=== PATIENT | female | born 1985 ===

== ENCOUNTER 2017-12-07 17:37 | Emergency (ER) | payer MEDICAID, OTHER ==
[2017-12-07 17:37] VITALS: BMI 26.4
[2017-12-07] MEDS ORDERED: Sodium Chloride 0.9% 1,000 ML IV STA (18:36)
--- NOTE | 2017-12-07 18:39 | ED PDOC ---
HPI: Female Pain Time Seen by Provider: 12/07/17 18:36 Chief Complaint (Nursing): Female Genitourinary Chief Complaint (Provider): VAGINAL BLEEDING History Per: Patient (32 Y/O FEMALE HERE WITH VAGINAL BLEEDING LEFT LOWER ABD PAIN X 9 DAYS. WAS SEEN AT [facility] AND WAS TOLD SHE HAD SPONTANEOUS . WAS NOTED TO HAVE BETA HCG 277. SEEN AT [facility] TODAY (STATES SHE WAS TOLD TO F/U 7 DAYS SUBSEQUENTLY TO REPEAT BETA HCG) AND WAS FOUND TO HAVE BETA QUANT >700. 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 AND THAT IT WOULD BE HARD FOR HER TO GET NATURALLY.) Past Medical History Reviewed: Historical Data, Nursing Documentation, Vital Signs Vital Signs: Last Vital Signs Temp 99.7 F H 12/07/17 17:48 Pulse 99 H 12/07/17 17:48 Resp 16 12/07/17 17:48 BP 119/78 12/07/17 17:48 Pulse Ox 99 12/07/17 17:48 - Medical History PMH: Asthma, Hypothyroidism Denies: Chronic Kidney Disease - Family History Family History: States: No Known Family Hx - Home Medications Home Medications: Ambulatory Orders Medication Instructions Recorded Levothyroxine [Synthroid] 1 tab PO DAILY 07/14/17 Acetaminophen [Tylenol Arthritis] 650 mg PO Q6 11/28/17 - Allergies Allergies/Adverse Reactions: Allergies Allergy/AdvReac Type Severity Reaction Status Date / Time aspirin Allergy SWELLING Verified 12/07/17 17:47 ibuprofen AdvReac SHORTNESS Verified 11/28/17 12:18 OF BREATH Review of Systems ROS Statement: Except As Marked, All Systems Reviewed And Found Negative Physical Exam - Reviewed Nursing Documentation Reviewed: Yes Vital Signs Reviewed: Yes - Physical Exam Appears: Positive for: Well, Non-toxic, No Acute Distress Head Exam: Positive for: ATRAUMATIC, NORMAL INSPECTION, NORMOCEPHALIC Skin: Positive for: Normal Color, Warm, DRY Eye Exam: Positive for: EOMI, Normal appearance, PERRL ENT: Positive for: Normal ENT Inspection Neck: Positive for: Normal, Painless ROM Cardiovascular/Chest: Positive for: Regular Rate, Rhythm Respiratory: Positive for: CNT, Normal Breath Sounds Gastrointestinal/Abdominal: Positive for: Normal Exam, Soft Pelvic Exam: Positive for: Other (MILD VAGINAL BLEEDING. CLOSED CERVICAL OS. LEFT ADNEXAL TENDERNESS NOTED.) Back: Positive for: Normal Inspection Extremity: Positive for: Normal ROM Neurologic/Psych: Positive for: Alert, Oriented - Laboratory Results Result Diagrams: 12/07/17 18:49 12/07/17 18:49 - ECG O2 Sat by Pulse Oximetry: 99 - Progress ED Course And Treament: TRANSVAG US REVIEWED WITH DR. GRACE. NO IUP NOTED ON TECH READING. WILL AWAIT [facility] READING. D/W FAMILY MED RESIDENT SERVICE WORKER HELPER FOR OB-POLITICAL ANTHROPOLOGIST. DR. TEE CURRENTLY IN OR. NS 1 LITER WIDE OPEN Disposition - Clinical Impression Clinical Impression: Vaginal bleeding - Patient ED Disposition Is Patient to be Admitted: Transfer of Care - Disposition Disposition: Transfer of Care Disposition Time: 19:54 Condition: FAIR Patient Signed Over To: Nancy Cuadra Handoff Comments: PENDING [facility] REPORT FOR US; GUEST HOUSE MANAGER CONSULT
[2017-12-07 19:00] LABS: BASO % 0.7 % (0.0-2.0); EOS % 0.7 % (0.0-4.0); HEMOGLOBIN 14.1 g/dL (12.0-16.0); LYMPH # 2.1 K/uL (1.0-4.3); LYMPH % 34.2 % (20.0-40.0); MEAN CELL VOLUME 94.6 fl (81.0-99.0); MEAN CORPUSCULAR HEMOGLOBIN 31.7 pg (27.0-31.0); MEAN CORPUSCULAR HGB CONC 33.5 g/dL (33.0-37.0); MEAN PLATELET VOLUME 9.4 fl (7.2-11.7); MONO # 0.3 K/uL (0.0-0.8); MONO % 4.8 % (0.0-10.0); NEUT # 3.6 K/uL (1.8-7.0); NEUT % 59.6 % (50.0-75.0); NRBC % 0.3 % (0.0-0.0); RBC 4.44 Mil/uL (3.80-5.20); RED CELL DISTRIBUTION WIDTH 14.1 % (11.5-14.5); WHITE BLOOD COUNT 6.1 K/uL (4.8-10.8)
[2017-12-07 19:03] LABS: INR 0.9; PROTHROMBIN TIME 10.3 Seconds (9.8-13.1)
[2017-12-07 19:05] LABS: PARTIAL THROMBOPLASTIN TIME 34.8 Seconds (25.6-37.1)
[2017-12-07 19:10] LABS: GFR NON-AFRICAN AMERICAN > 60
[2017-12-07 19:16] LABS: BLOOD UREA NITROGEN 15 mg/dl (7-17)
--- NOTE | 2017-12-07 20:06 | ED PDOC ---
- Laboratory Results Result Diagrams: 12/07/17 18:49 12/07/17 18:49 - ECG O2 Sat by Pulse Oximetry: 99 - Progress ED Course And Treament: Case endorsed to engineering technical writer from Darian BANERJEE pending Ged Preparation Teacher eval EXAM: US , Transvaginal CLINICAL HISTORY: 32 years old, female; Pain; complicated by abdominal or pelvic pain; Lower; First trimester; Gestational age or lmp: 10/08/2017; Additional info: R/O ectopic left adnexal tenderness TECHNIQUE: Real-time transvaginal obstetrical ultrasound of the maternal pelvis and a first trimester with image documentation. Transvaginal imaging was used for better evaluation of the fetus and adnexa. COMPARISON: No relevant prior studies available. FINDINGS: Gestation: Negative intrauterine gestational sac. The endometrium measures 6.6 mm Placenta/amniotic fluid: Cannot be adequately evaluated due to the early gestational age. Uterus/cervix: Unremarkable. No myometrial mass. Uterus 6.2 cm x 4.8 cm x 3.5 cm The cervix is 3.9 cm in length the cervical os is closed. Ovaries: Unremarkable. No mass. RIGHT 2.9 cm x 2.4 cm x 2.6 cm. The LEFT 2.9 cm x 2.9 cm x 3.2 cm. Free fluid: Trace free fluid is seen within the cul-de-sac. Examination does not show sonographic evidence of an ectopic . The absence of intrauterine gestational sac suggest differential diagnosis of early normal , ectopic , or recent spontaneous . IMPRESSION: 1. Negative intrauterine gestational sac. 2. Negative uterus and endometrium. 3. Negative exam of the ovaries. 4. Negative for evidence of ectopic . Patient evaluated by Dr. Medrano, want ad supervisor on-call; consent obtained for Methotrexate. Patient was advised to return to ED Sat 12/11, and tu12/14 for repeat beta levels Patient educated on discharge/return instructions via [employer] gold beater [id number] Patient demonstrates full understanding of discharge instructions as explained. Patient stable for discharge. Disposition - Clinical Impression Clinical Impression: Vaginal bleeding - POA Present On Arrival: None - Disposition [facility] [Outside] Disposition: Routine/Home Disposition Time: 23:24 Condition: STABLE Additional Instructions: Regresar a la josemanuel de emergencias los siguientes aparicio: sbado, 12/11/17 mariana, 12/14/17 Instructions: Methotrexate Print Language: SYRIAC
[2017-12-07 20:18] VITALS: TEMP 99.1
[2017-12-07] MEDS ORDERED: Methotrexate 50 mg/2 ml Inj IM ONE (22:01)
[2017-12-07 22:02] LABS: ALB/GLOB RATIO 1.2 (1.0-2.1); ALBUMIN 3.2 g/dL (3.5-5.0)
[2017-12-07 22:12] VITALS: O2SAT 99
--- NOTE | 2017-12-07 22:46 | CP.PCM.CON ---
<Brent Peacock - Last Filed: 12/07/17 23:44> History of Present Illness - History of Present Illness History of Present Illness: 32 y/o female with no significant PMHx seen in consult today with c/o occasional LLQ abdominal crampy pain and mild vaginal bleeding. Patient has hx of A1, irregular menses Q40 to 50 days lasts 5 to 6 days, LMP 10/08/17, she reports that she had vaginal bleeding with expulsion of tissue 9 days ago, she states she did a urine test at home at that time and was positive and went to [facility] on 11/28/17, where she was told she was having an , her BetaHCG was 277.82 on that visit. Patient states she was sent home and the bleeding started decreasing until 2 days ago when she started noticing some mild bleeding again where she has to change the pads 2 to 3 times a day, and she also reports she had some intermittent LLQ abd pain, 5/10, with no radiation. Patient went to [facility] again today and had another Beta HCG done with 674, patient was instructed to come to [facility] for evaluation by OBGYN, here her beta HCG results is 699.02. Patient denies any fever, N/V/D/C , headache, palpitations, chest pain, dysuria or abdominal pain at this time of consult. PMD: None PMHx: hypothyroidsm, asthma SurgHx: None Medication: Levothyroxine. FMHx: Father had ID Allergies: Aspirin, NSAIDS, Shrimp Social: Lives with , denies tobacco, alcohol or drug use. ED course: VS BP 119/78, HR 89, RR 16 Temp 99.7 Labs reviewed: H/H 14.142 betaHCG 699.02 Transvaginal US 12/07/17 reviewed ROS: as per HPI, all others unremarkable. Past Patient History - Infectious Disease Hx of Infectious Diseases: None - Past Social History Smoking Status: Never Smoked - CARDIAC Hx Cardiac Disorders: No - PULMONARY Hx Asthma: Yes - NEUROLOGICAL Hx Neurological Disorder: No - HEENT Hx HEENT Problems: No - RENAL Hx Chronic Kidney Disease: No - ENDOCRINE/METABOLIC Hx Hypothyroidism: Yes - PSYCHIATRIC Hx Substance Use: No - SURGICAL HISTORY Hx Surgeries: No - ANESTHESIA Hx Anesthesia: No Meds Allergies/Adverse Reactions: Allergies Allergy/AdvReac Type Severity Reaction Status Date / Time aspirin Allergy SWELLING Verified 12/07/17 17:47 ibuprofen AdvReac SHORTNESS Verified 11/28/17 12:18 OF BREATH Physical Exam - Constitutional Appears: Well, No Acute Distress - Head Exam Head Exam: ATRAUMATIC, NORMOCEPHALIC - Eye Exam Eye Exam: EOMI, PERRL - ENT Exam ENT Exam: Mucous Membranes Moist - Neck Exam Neck exam: Positive for: Full Rom - Respiratory Exam Respiratory Exam: Clear to Auscultation Bilateral - Cardiovascular Exam Cardiovascular Exam: REGULAR RHYTHM, +S1, +S2 - GI/Abdominal Exam GI & Abdominal Exam: Normal Bowel Sounds, Soft. absent: Tenderness - Exam Speculum exam: NORMAL SPECULUM EXAM (cervix closed ) - Extremities Exam Extremities exam: Negative for: pedal edema - Neurological Exam Neurological exam: Alert, Oriented x3 - Psychiatric Exam Psychiatric exam: Normal Affect, Normal Mood - Skin Skin Exam: Normal Color, Warm Results - Vital Signs Recent Vital Signs: Last Vital Signs Temp 99.1 F 12/07/17 20:18 Pulse 68 12/07/17 20:18 Resp 84 H 12/07/17 20:18 BP 107/71 12/07/17 20:18 Pulse Ox 99 12/07/17 22:11 - Labs Result Diagrams: 12/07/17 18:49 12/07/17 18:49 Labs: Laboratory Results - last 24 hr 12/07/17 12/07/17 12/07/17 18:49 18:49 18:49 WBC 6.1 RBC 4.44 Hgb 14.1 Hct 42.0 MCV 94.6 MCH 31.7 H MCHC 33.5 RDW 14.1 Plt Count 223 MPV 9.4 Neut % (Auto) 59.6 Lymph % (Auto) 34.2 [place] % (Auto) 4.8 Eos % (Auto) 0.7 Baso % (Auto) 0.7 Neut # (Auto) 3.6 Lymph # (Auto) 2.1 [place] # (Auto) 0.3 Eos # (Auto) 0.0 Baso # (Auto) 0.0 PT 10.3 INR 0.9 APTT 34.8 Sodium 140 Potassium 4.1 Chloride 104 Carbon Dioxide 21 L Anion Gap 19 BUN 15 Creatinine 0.6 L Est GFR ( Amer) > 60 Est GFR (Non-Af Amer) > 60 Random Glucose 89 Calcium 9.0 Total Bilirubin Direct Bilirubin AST ALT Alkaline Phosphatase Total Protein Albumin Globulin Albumin/Globulin Ratio Beta HCG, Quant Blood Type Antibody Screen BBK History Checked 12/07/17 12/07/17 12/07/17 18:49 18:49 21:46 WBC RBC Hgb Hct MCV MCH MCHC RDW Plt Count MPV Neut % (Auto) Lymph % (Auto) [place] % (Auto) Eos % (Auto) Baso % (Auto) Neut # (Auto) Lymph # (Auto) [place] # (Auto) Eos # (Auto) Baso # (Auto) PT INR APTT Sodium Potassium Chloride Carbon Dioxide Anion Gap BUN Creatinine Est GFR ( Amer) Est GFR (Non-Af Amer) Random Glucose Calcium Total Bilirubin 0.3 Direct Bilirubin 0.0 AST 24 ALT 30 Alkaline Phosphatase 36 L Total Protein 5.8 L Albumin 3.2 L Globulin 2.7 Albumin/Globulin Ratio 1.2 Beta HCG, Quant 699.02 Blood Type A POSITIVE Antibody Screen Negative BBK History Checked Patient has bt Assessment & Plan - Assessment and Plan (Free Text) Assessment: 32 y/o female with hx of vaginal expulsion of tissue on 11/28/17. Now presents with increasing levels of Beta HCG today 699.02 and c/o intermittent mild LLQ abd pain. Impression diagnosis: Ectopic Plan: -Methotrexate 82 mg IM x1 dose ( ECtopic x 1) -F/u measure Beta HCG day 4 and day 7 -Measure LFT's prior to treatment and f/u in 4 days -Patient aknowledges understadning of condition, instructed to return in 4 days for f/u after receiving treatment with methotrexate today, instructions given to return to ED if symptoms persist or worsen. Case discussed and seen with attending Dr Kevin Medrano. <Kevin Medrano - Last Filed: 12/08/17 16:01> Results - Vital Signs Recent Vital Signs: Last Vital Signs Temp 99.1 F 12/07/17 23:44 Pulse 69 12/07/17 23:44 Resp 18 12/07/17 23:44 BP 102/69 12/07/17 23:44 Pulse Ox 99 12/07/17 23:33 - Labs Result Diagrams: 12/07/17 18:49 08/07/18 18:49 Labs: Laboratory Results - last 24 hr 12/07/17 12/07/17 12/07/17 18:49 18:49 18:49 WBC 6.1 RBC 4.44 Hgb 14.1 Hct 42.0 MCV 94.6 MCH 31.7 H MCHC 33.5 RDW 14.1 Plt Count 223 MPV 9.4 Neut % (Auto) 59.6 Lymph % (Auto) 34.2 [place] % (Auto) 4.8 Eos % (Auto) 0.7 Baso % (Auto) 0.7 Neut # (Auto) 3.6 Lymph # (Auto) 2.1 [place] # (Auto) 0.3 Eos # (Auto) 0.0 Baso # (Auto) 0.0 PT 10.3 INR 0.9 APTT 34.8 Sodium 140 Potassium 4.1 Chloride 104 Carbon Dioxide 21 L Anion Gap 19 BUN 15 Creatinine 0.6 L Est GFR ( Amer) > 60 Est GFR (Non-Af Amer) > 60 Random Glucose 89 Calcium 9.0 Total Bilirubin Direct Bilirubin AST ALT Alkaline Phosphatase Total Protein Albumin Globulin Albumin/Globulin Ratio Beta HCG, Quant Blood Type Antibody Screen BBK History Checked 12/07/17 12/07/17 12/07/17 18:49 18:49 21:46 WBC RBC Hgb Hct MCV MCH MCHC RDW Plt Count MPV Neut % (Auto) Lymph % (Auto) [place] % (Auto) Eos % (Auto) Baso % (Auto) Neut # (Auto) Lymph # (Auto) [place] # (Auto) Eos # (Auto) Baso # (Auto) PT INR APTT Sodium Potassium Chloride Carbon Dioxide Anion Gap BUN Creatinine Est GFR ( Amer) Est GFR (Non-Af Amer) Random Glucose Calcium Total Bilirubin 0.3 Direct Bilirubin 0.0 AST 24 ALT 30 Alkaline Phosphatase 36 L Total Protein 5.8 L Albumin 3.2 L Globulin 2.7 Albumin/Globulin Ratio 1.2 Beta HCG, Quant 699.02 Blood Type A POSITIVE Antibody Screen Negative BBK History Checked Patient has bt Assessment & Plan - Assessment and Plan (Free Text) Plan: OB Hospitalist note. This patient was seen and examined by me. I saw her the same time as PGY1. She does not have an acute abdomen. Condition explained to pt (abnormal preg because of rising BHCG - not consistent with normal preg) and she understood. The possibility of ectopic vs complete ab were discussed. After detailed discussion, will give Methotrexate today, follow up days 4 and 7. If more pain advised her to come back to [facility] ER. She understood the possibility of an operation if she becomes more symptomatic. Her partner was also present during the discussion. AISSATOU - Date & Time Date: 12/08/17 Time: 16:00
[2017-12-07 23:45] VITALS: BP 102/69; PULSE 69; RESP 18
--- NOTE | 2017-12-08 16:52 | US ---
Date of service: 12/07/2017 HISTORY: R/O ECTOPIC LEFT ADNEXAL TENDERNESS LMP 10/08/2017 COMPARISON: None available. TECHNIQUE: Transvaginal FINDINGS: UTERUS: Measures 6.3 x 4.9 x 3.6 cm. Normal in size and appearance. No fibroid or other mass lesion seen. ENDOMETRIUM: Measures 7 mm in diameter. Unremarkable. CERVIX: No cervical abnormality identified. Cervical length is 3.9 cm RIGHT OVARY: Measures cm. No solid mass. Normal flow. LEFT OVARY: Measures cm. No solid mass. Normal flow. FREE FLUID: Trace free fluid in the cul-de-sac present OTHER FINDINGS: No intrauterine gestational sac noted. IMPRESSION: No intrauterine gestational sac apparent. No adnexal mass to suggest an ectopic . The appearance of the endometrium is nonspecific. This does not exclude an ectopic. Clinical correlation with serial beta HCG levels is recommended. Concordant results (preliminary interpretation) provided by [facility].
== END 2017-12-07 23:44 | disposition home or self-care (01) ==
LOC: H.ER 17:37
DX: O00.90 Unspecified ectopic pregnancy without intrauterine pregnancy (principal); O26.891 Other specified pregnancy related conditions, first trimester; E03.9 Hypothyroidism, unspecified; Z88.6 Allergy status to analgesic agent
CPT/HCPCS: 76817; 80048; 80076; 84702; 85025; 85610; 85730; 86850; 86900; 99283; J7030

== ENCOUNTER 2017-12-11 14:54 | Emergency (ER) | payer MEDICAID, OTHER ==
[2017-12-11 14:54] VITALS: BMI 26.4
[2017-12-11 15:24] VITALS: BP 101/69; PULSE 70; RESP 18; TEMP 99.3; O2SAT 100
[2017-12-11 16:06] LABS: ALB/GLOB RATIO 1.4 (1.0-2.1); ALBUMIN 4.4 g/dL (3.5-5.0); ALT/SGPT 36 U/L (9-52); AST/SGOT 25 U/L (14-36); BLOOD UREA NITROGEN 16 mg/dl (7-17); CALCIUM 9.5 mg/dL (8.4-10.2); GFR NON-AFRICAN AMERICAN > 60
--- NOTE | 2017-12-11 16:43 | ED PDOC ---
HPI: Female Pain Time Seen by Provider: 12/11/17 15:23 Chief Complaint (Nursing): Female Genitourinary Chief Complaint (Provider): Female Genitourinary History Per: Patient History/Exam Limitations: no limitations Additional Complaint(s): Patient is a 32 y/o female who presents to the Ed complaining of vaginal bleeding. Patient was seen on 11/28/17 for pelvic pain and vaginal bleeding at that time her Beta HCG was 277 and US revealed a very small possible gestational sac in her uterus. Patient returned on 12/07/17 for continued symptoms and her Beta HCG was 674 at that time US showed no gestational as well as no mass and no adnexa. He saw 12/07/[address] Medrano and was given methotrexate for possible ectopic . She returned today for her day 4 labs. Patient does report less bleeding today and denies any pain. Past Medical History Reviewed: Historical Data, Nursing Documentation, Vital Signs Vital Signs: Last Vital Signs Temp 99.3 F 12/11/17 15:21 Pulse 70 12/11/17 15:21 Resp 18 12/11/17 15:21 BP 101/69 12/11/17 15:21 Pulse Ox 100 12/11/17 15:21 - Medical History PMH: Asthma, Hypothyroidism Denies: Chronic Kidney Disease - Family History Family History: States: Unknown Family Hx - Home Medications Home Medications: Ambulatory Orders Medication Instructions Recorded Levothyroxine [Synthroid] 1 tab PO DAILY 07/14/17 Acetaminophen [Tylenol Arthritis] 650 mg PO Q6 11/28/17 - Allergies Allergies/Adverse Reactions: Allergies Allergy/AdvReac Type Severity Reaction Status Date / Time aspirin Allergy SWELLING Verified 12/07/17 17:47 ibuprofen AdvReac SHORTNESS Verified 11/28/17 12:18 OF BREATH Review of Systems ROS Statement: Except As Marked, All Systems Reviewed And Found Negative Constitutional: Negative for: Fever Genitourinary Female: Positive for: Vaginal Bleeding (less bleeding today), Pelvic Pain (no pain on arrival ) Physical Exam - Reviewed Nursing Documentation Reviewed: Yes Vital Signs Reviewed: Yes - Physical Exam Appears: Positive for: Non-toxic, No Acute Distress Head Exam: Positive for: ATRAUMATIC Skin: Positive for: Normal Color Eye Exam: Positive for: Normal appearance Neck: Positive for: Normal Respiratory: Negative for: Respiratory Distress Extremity: Positive for: Normal ROM. Negative for: Pedal Edema, Deformity Neurologic/Psych: Positive for: Alert - Laboratory Results Result Diagrams: 12/11/17 15:45 - ECG O2 Sat by Pulse Oximetry: 100 (RA) Pulse Ox Interpretation: Normal Medical Decision Making Medical Decision Making: Time: 15:30 Initial Plan: --Beta hcg --CMP Patient's beta HCG is 818. Discussed case with Dr. Easton who states the rise is expected day 4 after methotrexate treatment. Labs will be redrawn day 7. --Patient is stable for discharge at this time. Upon provider reevaluation patient is feeling better, is medically stable, and requires no further treatment in the ED at this time. Patient will be discharged home. Counseling was provided and all questions were answered regarding diagnosis and need for follow up in 3 days to have labs redrawn. There is agreement to discharge plan. Return if symptoms persist or worsen. ~ Scribe Attestation: Documented by Mariano Adame, acting as a scribe for Josette Toure PA-C Provider Scribe Attestation: All medical record entries made by the Scribe were at my direction and personally dictated by me. I have reviewed the chart and agree that the record accurately reflects my personal performance of the history, physical exam, medical decision making, and the department course for this patient. I have also personally directed, reviewed, and agree with the discharge instructions and disposition. Disposition - Clinical Impression Clinical Impression: Vaginal bleeding - Patient ED Disposition Is Patient to be Admitted: No Counseled Patient/Family Regarding: Diagnosis, Need For Followup - Disposition Referrals: Kevin Medrano DO [Staff Provider] - [facility] [[facility]] Disposition: Routine/Home Disposition Time: 16:46 Condition: GOOD Instructions: Methotrexate Forms: [employer] (Hungarian) Print Language: ITALIAN
== END 2017-12-11 16:57 | disposition home or self-care (01) ==
LOC: H.ER 14:54
DX: N93.9 Abnormal uterine and vaginal bleeding, unspecified (principal); E03.9 Hypothyroidism, unspecified; J45.909 Unspecified asthma, uncomplicated; Z88.6 Allergy status to analgesic agent

== ENCOUNTER 2017-12-14 09:29 | Emergency (ER) | payer SELFPAY ==
[2017-12-14 09:49] VITALS: O2SAT 99; BMI 24.9
--- NOTE | 2017-12-14 11:01 | ED PDOC ---
HPI: Female Pain Time Seen by Provider: 12/14/17 10:04 Chief Complaint (Provider): Repeat beta hCG History Per: Patient History/Exam Limitations: no limitations Additional Complaint(s): Pt returns for repeat beta hCG after methotrexate therapy on 12/07/17. Reports continued vaginal bleeding and lower abdominal pain. Denies fever, nausea, vomiting. Abnormal Vaginal Bleeding: Yes Past Medical History Reviewed: Nursing Documentation, Vital Signs Vital Signs: Last Vital Signs Temp 98 F 12/14/17 09:48 Pulse 84 12/14/17 09:48 Resp BP 107/73 12/14/17 09:48 Pulse Ox 99 12/14/17 09:48 - Medical History PMH: Asthma, Hypothyroidism Denies: Chronic Kidney Disease - Family History Family History: States: Unknown Family Hx - Social History Current smoker - smoking cessation education provided: No - Home Medications Home Medications: Ambulatory Orders Medication Instructions Recorded Levothyroxine [Synthroid] 1 tab PO DAILY 07/14/17 Acetaminophen [Tylenol Arthritis] 650 mg PO Q6 11/28/17 - Allergies Allergies/Adverse Reactions: Allergies Allergy/AdvReac Type Severity Reaction Status Date / Time aspirin Allergy SWELLING Verified 12/07/17 17:47 ibuprofen AdvReac SHORTNESS Verified 11/28/17 12:18 OF BREATH Review of Systems Constitutional: Negative for: Fever, Chills Gastrointestinal: Positive for: Abdominal Pain Genitourinary Female: Positive for: Vaginal Bleeding, Pelvic Pain. Negative for : Dysuria, Hematuria, Vaginal Discharge Skin: Negative for: Rash, Lesions Physical Exam - Reviewed Nursing Documentation Reviewed: Yes Vital Signs Reviewed: Yes - Physical Exam Appears: Positive for: Well, No Acute Distress Skin: Positive for: Normal Color, Warm, Dry Eye Exam: Positive for: Normal appearance, EOMI, PERRL Cardiovascular/Chest: Positive for: Regular Rate, Rhythm Respiratory: Positive for: Normal Breath Sounds Gastrointestinal/Abdominal: Positive for: Bowel Sounds, Soft, Tenderness (LLQ). Negative for: Distended, Guarding, Rebound Extremity: Positive for: Normal ROM Neurologic/Psych: Positive for: Alert, Oriented - ECG O2 Sat by Pulse Oximetry: 99 Medical Decision Making Medical Decision Makin yo female for repeat beta hCG s/p Methotrexate therapy. - beta hCG - Ob-Contract Consultant consult 11:40 Beta level 818.20 (12/11) --> 623.18 (12/14). Lab results discussed with Dr. Medrano , advises additional dose of Methotrexate, will obtain consent. 11:[address] Medrano in ED, Methotrexate ordered, consent obtained by Dr. Medrano. 14:00 Pt administered Methotrexate 80 mg IM by provider. Pt to follow-up with [facility] in 1-2 weeks, Rx for follow-up given to patient by Dr. Medrano. Disposition - Clinical Impression Clinical Impression: Ectopic - Disposition Referrals: [facility] [Outside] Disposition: Routine/Home Disposition Time: 14:10 Condition: STABLE Additional Instructions: FOLLOW-UP WITH [facility] IN 1-2 WEEKS FOR REEVALUATION. Instructions: Ectopic Forms: [facility] (Slovak) Print Language: LIBERIAN
[2017-12-14] MEDS: Methotrexate 50 mg/2 ml Inj IM ONE ×3 (14:01→14:07)
[2017-12-14 14:20] VITALS: BP 99/63; PULSE 68; RESP 18; TEMP 98.6
== END 2017-12-14 14:18 | disposition home or self-care (01) ==
LOC: H.ER 09:29 → SUPCPDRO 09:29 → H.ER 14:18
DX: O00.90 Unspecified ectopic pregnancy without intrauterine pregnancy (principal); J45.909 Unspecified asthma, uncomplicated; E03.9 Hypothyroidism, unspecified; Z88.6 Allergy status to analgesic agent
CPT/HCPCS: 84702; 96372; 99284; J9250